=== PATIENT | male | born 1990 | race Caucasian/White ===

== ENCOUNTER 2018-12-17 08:24 | Emergency (ER) | payer OTHER ==
[~2018-12-17] VITALS: Ht 190.5 cm; Wt 64.4 kg
== END 2018-12-17 11:33 | disposition home or self-care (01) ==
LOC: ER 08:24
DX: M79.662 Pain in left lower leg (principal)

== ENCOUNTER 2025-03-05 15:22 | Emergency (ER) | payer OTHER ==
[~2025-03-05] VITALS: Ht 193 cm; Wt 68.0 kg
[2025-03-05] MEDS ORDERED: KETOROLAC TROMETHAMINE 30 MG VIAL IM ONE (16:45)
[2025-03-05] MEDS ORDERED: KETOROLAC TROMETHAMINE 30 MG VIAL ONE (16:56)
[2025-03-05] MEDS ORDERED: ORPHENADRINE CITRATE 30 MG/ML AMPUL ONE (16:56)
[2025-03-05] MEDS ORDERED: ORPHENADRINE CITRATE 30 MG/ML AMPUL IM ONE (17:00)
[2025-03-05] MEDS ORDERED: DICLOFENAC SODI50 MG PO (18:44)
[2025-03-05] MEDS ORDERED: NORFLEX100MG PO (18:44)
== END 2025-03-05 20:38 ==
LOC: ER 15:22
DX: M54.50 Low back pain, unspecified (principal)
CPT/HCPCS: 72131; 96372; 99284; J1885; J2360